=== PATIENT | female | born 1960 | race Caucasian/White ===

== ENCOUNTER 2023-05-16 01:08 | Day surgery (SDC) | payer BC, SELFPAY ==
[2023-05-02 15:56] VITALS: BMI 38.7
[2023-05-16 09:49] VITALS: BP 146/77; PULSE 73; RESP 18; TEMP 36.6; O2SAT 99
[2023-05-16] MEDS: LACTATED RINGERS 1,000 ML 150 ML IV CONT (10:04)
--- NOTE | 2023-05-16 10:32 | PM.HPGS ---
History of Present Illness History of Present Illness Consent: Risks, benefits, and alternatives have been discussed and questions answered. Patient agrees to proceed with procedure. Chief complaint: neoplasm screening Narrative: Yara Pollack is a 62 year old female with colon polyp, last colonoscopy ~ 6 years ago Review of Systems Constitutional: Constitutional: Denies headache(s) and Denies weakness Eyes: Eyes: Denies blurry vision ENT: Reports Normal hearing present, Denies headache(s) and Denies neck pain Cardiovascular: Cardiovascular: Denies chest pain and Denies dyspnea Respiratory: Respiratory: Denies dyspnea Gastrointestinal: Gastrointestinal: Reports no additional gastrointestinal complaints Genitourinary: Genitourinary: Denies dysuria Musculoskeletal: Musculoskeletal: Denies neck pain Integumentary/Breasts: Skin/Breast: Denies dry skin Neurologic: Reports Normal hearing present, Denies headache(s) and Denies weakness Psychiatric: Psychiatric: Denies anxiety Endocrine: Endocrine: Denies change in body appearance Hematologic/Lymphatic: Hematologic/Lymphatic: Denies easy bleeding Allergic/Immunologic: Allergic/Immunologic: Denies urticaria PMFSH Past Medical History Medical History (Updated 05/16/23 @ 10:32 by Pasquale Barrera MD) Arthritis Chronic GERD Colon polyp Disorder of thyroid Hyperlipidemia, unspecified 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) Varicose veins of both lower extremities Family History Family History (Updated 04/19/23 @ 14:52 by Catherine Stack MA) Father Diabetes mellitus Hypertension Heart disease Mother Heart disease Hypertension Sibling Diabetes mellitus Heart disease Grandparent Diabetes mellitus Grandparent Hypertension Social History Social History (Updated 04/19/23 @ 14:54 by Catherine Stack MA) Smoking status: Never smoker Tobacco type: cigarettes and e-cigarettes/vaping Alcohol intake: current Alcohol use details: social Substance use: never Substance use type: does not use Lack of Transportation: No Lack of Food: Never True Current Housing: I Have Housing Concerned About Future Housing: No Difficulty Paying Gas/Electric Bills: No Difficulty Paying for Meds: No Currently Unemployed: No Education: Associate Degree Difficulty w/ Childcare or Family Care: No Living arrangements: with family Occupation/Education: retired Spiritual care concerns: No Agree to blood products: Yes Meds Home Medications and Allergies Home Medications Medication Instructions Recorded Confirmed Type levothyroxine 88 mcg tablet 88 mcg PO DAILY 04/19/23 05/16/23 History pantoprazole 40 mg granules 40 mg PO DAILY 04/19/23 05/16/23 History delayed-release for susp in packet (Protonix) rosuvastatin 5 mg tablet 5 mg PO DAILY 04/19/23 05/16/23 History vit C 250 mg-vit E 200 unit-zinc 1 tablet PO BID 04/19/23 05/16/23 History 12.5 mg-copper 1 [id number] tablet (ICaps AREDS2 (copper citrate)) aspirin 325 mg tablet 325 mg PO DAILY 05/02/23 05/16/23 History celecoxib 200 mg capsule (Celebrex) 200 mg PO WEEKLY 05/02/23 05/16/23 History cholecalciferol (vitamin D3) 25 25 mcg PO DAILY 05/02/23 05/16/23 History mcg (1,000 unit) tablet (Vitamin D3) mecobalamin (vitamin B12) 5,000 5,000 mcg PO DAILY 05/02/23 05/16/23 History mcg chewable tablet ranibizumab 0.3 mg/0.05 mL 0.5 mg intravitreal DIRECTED 05/02/23 05/16/23 History intravitreal syringe (Lucentis) Allergies Allergy/AdvReac Type Severity Reaction Status Date / Time simvastatin Allergy Unknown raises Verified 05/16/23 09:48 liver enzymes Vital Signs Vital Signs - 24 hr 05/16/23 09:49 Temperature 97.9 F Pulse Rate 73 Respiratory Rate 18 Blood Pressure 146/77 H Pulse Oximetry 99 Oxygen Delivery Room Air Exam Const: General: comfortable and no acute distress HENMT:
--- NOTE | 2023-05-16 10:33 | WPDANESEPPF ---
Anes - Initial Pre Proc Eval Procedure: Operation Date: 05/16/23 11:00 Proposed Procedures p Screening Colonoscopy - Pasquale Barrera MD Date/Time: 05/16/23 10:33 Surgeon: Pasquale Barrera MD Pre Op Diagnosis: neoplasm screening Patient Data Age: 62 Gender: F Height: 1.63 m Weight: 100 kg Last Vital Signs Temp 97.9 F 05/16/23 09:49 Pulse 73 05/16/23 09:49 Resp 18 05/16/23 09:49 BP 146/77 H 05/16/23 09:49 Pulse Ox 99 05/16/23 09:49 O2 Del Method Room Air 05/16/23 09:49 Allergies Allergy/AdvReac Type Severity Reaction Status Date / Time simvastatin Allergy Unknown raises Verified 05/16/23 09:48 liver enzymes Home Medications Medication Instructions Recorded Confirmed Type levothyroxine 88 mcg tablet 88 mcg PO DAILY 04/19/23 05/16/23 History pantoprazole 40 mg granules 40 mg PO DAILY 04/19/23 05/16/23 History delayed-release for susp in packet (Protonix) rosuvastatin 5 mg tablet 5 mg PO DAILY 04/19/23 05/16/23 History vit C 250 mg-vit E 200 unit-zinc 1 tablet PO BID 04/19/23 05/16/23 History 12.5 mg-copper 1 [id number] tablet (ICaps AREDS2 (copper citrate)) aspirin 325 mg tablet 325 mg PO DAILY 05/02/23 05/16/23 History celecoxib 200 mg capsule (Celebrex) 200 mg PO WEEKLY 05/02/23 05/16/23 History cholecalciferol (vitamin D3) 25 25 mcg PO DAILY 05/02/23 05/16/23 History mcg (1,000 unit) tablet (Vitamin D3) mecobalamin (vitamin B12) 5,000 5,000 mcg PO DAILY 05/02/23 05/16/23 History mcg chewable tablet ranibizumab 0.3 mg/0.05 mL 0.5 mg intravitreal DIRECTED 05/02/23 05/16/23 History intravitreal syringe (Lucentis) Patient hx anesthesia problems: none Family hx anesthesia problems: none Results Review: All pre-operative results and documents have been reviewed as part of the pre-operative evaluation. 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) Varicose veins of both lower extremities Family History Family History (Updated 04/19/23 @ 14:52 by Catherine Stack MA) Father Diabetes mellitus Hypertension Heart disease Mother Heart disease Hypertension Sibling Diabetes mellitus Heart disease Grandparent Diabetes mellitus Grandparent Hypertension Social History Social History (Updated 04/19/23 @ 14:54 by Catherine Stack MA) Smoking status: Never smoker Tobacco type: cigarettes and e-cigarettes/vaping Alcohol intake: current Alcohol use details: social Substance use: never Substance use type: does not use Lack of Transportation: No Lack of Food: Never True Current Housing: I Have Housing Concerned About Future Housing: No Difficulty Paying Gas/Electric Bills: No Difficulty Paying for Meds: No Currently Unemployed: No Education: Associate Degree Difficulty w/ Childcare or Family Care: No Living arrangements: with family Occupation/Education: retired Spiritual care concerns: No Agree to blood products: Yes Anes - Eval Final PreProcedure Day of Procedure 05/16/23 10:33 Patient weight: obese Heart: regular rate and rhythm Lungs: clear to auscultation Airway: Mallampati scale class II Neurological: alert and oriented Last oral intake: >/= 8 hours ASA classification: III Emergent: no Anesthetic plan: proceed Anesthesia type and monitoring: general GIVS and standard monitoring Results Review: All pre-operative results and documents have been reviewed as part of the pre-operative evaluation. Informed Consent: The patient's anesthetic plan and its attendant risks and benefits were discussed with the patient/family/POA. Questions were solicited and answers provided to the satisfaction of the patient/family/POA.
[2023-05-16 10:55] VITALS: BP 100/54; PULSE 61; RESP 17; O2SAT 99
[2023-05-16 11:05] VITALS: BP 106/54; PULSE 55; RESP 15; O2SAT 99
[2023-05-16 11:15] VITALS: BP 127/63; PULSE 53; RESP 15; O2SAT 99
== END 2023-05-16 11:28 | disposition home or self-care (01) ==
PROVIDERS: PCP Nurse Practitioner Adult Health; Visit Provider Internal Medicine Gastroenterology
PROC: 0DJD8ZZ Inspection of Lower Intestinal Tract, Via Natural or Artificial Opening Endoscopic (ICD-10-PCS; CPT 45378; principal; 2023-05-16 11:00)
DX: Z12.11 Encounter for screening for malignant neoplasm of colon (principal); D12.0 Benign neoplasm of cecum; K64.8 Other hemorrhoids; K21.9 Gastro-esophageal reflux disease without esophagitis; E78.5 Hyperlipidemia, unspecified; E66.9 Obesity, unspecified; Z68.37 Body mass index [BMI] 37.0-37.9, adult; Z79.85 Long-term (current) use of injectable non-insulin antidiabetic drugs; Z79.620 Long term (current) use of immunosuppressive biologic
CPT/HCPCS: 45380; 88305; J2704; J7120